=== PATIENT | female | born 1980 | race Caucasian/White ===

== ENCOUNTER 2020-11-09 17:52 | Outpatient (CLI) | payer SELFPAY | END 2020-11-09 17:53 | disposition EMS.NT | LOC: EMS 17:52 | PROVIDERS: ATTEND Surgery | DX: R00.0 Tachycardia, unspecified (principal) ==

== ENCOUNTER 2020-12-30 17:32 | Outpatient (CLI) | payer SELFPAY | END 2020-12-30 17:33 | disposition left against medical advice (07) | LOC: EMS 17:32 | DX: R07.9 Chest pain, unspecified (principal); R06.02 Shortness of breath ==

== ENCOUNTER 2020-12-30 22:20 | Emergency (ER) | payer SELFPAY ==
--- NOTE | 2020-12-30 22:30 | ED Physician Documentation ---
History of Present Illness - Stated complaint Stated Complaint: INCREASED HEART RATE - Chief complaint Chief Complaint: Cardiac - History obtained from History obtained from: Patient - History of Present Illness Timing: Today, How many hours ago (few hours ago) Pain level max: 0 Pain level now: 0 Improved by: nothing Worsened by: no exacerbating factors - Additonal information Additional information: c/o sudden onset rapid [place] says another [place] checked her pulse and said it was 150 bpm. she has had similar episodes before but no diagnosis (only has had holter monitor once). she drove home, took dose of steroids as a stress dose due to addrenal insufficiency, then came to ED. she has lightheadedness and dizziness but rapid palpitations have resolved. Review of Systems Constitutional: reports: Reviewed and negative Cardiac: reports: Palpitations. denies: Chest pain / pressure, Pedal edema, Calf pain Respiratory: reports: Reviewed and negative GI: reports: Reviewed and negative : denies: Now EGA Musculoskeletal: reports: Reviewed and negative PD PAST MEDICAL HISTORY - Past Medical History Past Medical History: Yes Other Past Medical History: addrenal insufficiency - Past Surgical History Past Surgical History: No - Present Medications Home Medications: Ambulatory Orders Medication Instructions Recorded Confirmed Hydrocortisone [Cortef] PO 12/30/20 Metoprolol Succinate [Toprol Xl] 25 mg PO DAILY 12/30/20 12/30/20 - Allergies Allergies/Adverse Reactions: Allergies Allergy/AdvReac Type Severity Reaction Status Date / Time No Known Drug Allergies Allergy Verified 12/30/20 22:41 - Living Situation Living Arrangement: reports: At home - Social History Does the pt smoke?: No PD ED PE NORMAL - Vitals Vital signs reviewed: Yes - General General: Alert and oriented X 3, No acute distress, Well developed/nourished - Neck Neck: Supple, no meningeal sign - Cardiac Cardiac: RRR, No murmur, No gallop, No rub - Respiratory Respiratory: No respiratory distress, Clear bilaterally - Abdomen Abdomen: Soft, Non tender - Derm Derm: Normal color, Warm and dry - Extremities Extremities: No edema Results - Vitals Vitals: Oxygen O2 Source Room air - EKG (time done) No standard instances Rate: Rate (enter#) (71) Rhythm: NSR [place]: Normal Intervals: Normal SD QRS: Normal Ischemia: Normal ST segments - Labs Labs: Laboratory Tests 12/30/20 12/30/20 12/30/20 22:58 22:58 22:58 WBC 7.1 RBC 4.58 Hgb 14.2 Hct 41.5 MCV 90.6 MCH 31.0 MCHC 34.2 RDW 11.4 L Plt Count 258 MPV 10.1 Neut # (Auto) 5.0 Lymph # (Auto) 1.7 [place] # (Auto) 0.4 Eos # (Auto) 0.0 Baso # (Auto) 0.0 Absolute Nucleated RBC 0.00 Nucleated RBC % 0.0 Sodium 139 Potassium 3.8 Chloride 104 Carbon Dioxide 24 Anion Gap 11.0 BUN 9 Creatinine 0.6 Estimated GFR (MDRD) 111 Glucose 136 H Calcium 9.4 Magnesium 2.1 Total Bilirubin 0.2 AST 18 ALT 18 Alkaline Phosphatase 38 L Total Protein 7.1 Albumin 4.1 Globulin 3.0 Albumin/Globulin Ratio 1.4 Lipase 29 TSH 1.78 PD MEDICAL DECISION MAKING - ED course Complexity details: reviewed results, re-evaluated patient, considered differential, d/w patient ED course: no further episodes of palpitations during ED stay and no ectopy or dysrhythmias on monitor. a few soft bp reads and thus given 10 mg po decadron as stress dose steroid (IV was not established) prior to discharge Departure - Departure Disposition: 01 Home, Self Care Clinical Impression: Palpitations Condition: Good Instructions: ED Palpitations Comments: Follow up with your primary care provider within 1 week Discharge Date/Time: 12/31/20 00:05
[2020-12-30 23:04] LABS: BASOPHILS % (AUTO) 0.3 %; EOSINOPHILS % (AUTO) 0.4 %; HCT - HEMATOCRIT 41.5 % (37.0-47.0); HGB - HEMOGLOBIN 14.2 g/dL (12.0-16.0); LYMPHOCYTES # (AUTO) 1.7 10^3/uL (1.5-3.5); LYMPHOCYTES % (AUTO) 23.3 %; MEAN CORPUSCULAR HGB CONC 34.2 g/dL (32.0-36.0); MEAN CORPUSCULAR VOLUME 90.6 fL (81.0-99.0); MEAN PLATELET VOLUME 10.1 fL (7.9-10.8); MONOCYTES # (AUTO) 0.4 10^3/uL (0.0-1.0); MONOCYTES % (AUTO) 4.9 %; NEUTROPHILS % (AUTO) 70.8 %; PLT - PLATELET COUNT 258 10^3/uL (130-450); RED BLOOD COUNT 4.58 10^6/uL (4.20-5.40); RED CELL DISTRIBUTION WIDTH 11.4 % (12.0-15.0); WHITE BLOOD COUNT 7.1 x10^3/uL (4.8-10.8)
[2020-12-30 23:18] LABS: ALBUMIN 4.1 g/dL (3.2-5.5); ALBUMIN/GLOBULIN RATIO 1.4 (1.0-2.2); BILIRUBIN,TOTAL 0.2 mg/dL (0.2-1.0); CALCIUM 9.4 mg/dL (8.5-10.3); CREATININE 0.6 mg/dL (0.4-1.0); MAGNESIUM 2.1 mg/dL (1.7-2.8); POTASSIUM 3.8 mmol/L (3.5-5.0); TOTAL PROTEIN 7.1 g/dL (6.7-8.2)
[2020-12-30] MEDS ORDERED: DEXAMETHASONE 10 MG/ML VIAL PO STA (23:48)
[2020-12-30] MEDS ORDERED: CHERRY SYRUP 10 ML UDC PO ONE (23:48)
[2020-12-31 00:04] VITALS: BP 121/80
== END 2020-12-31 00:05 | disposition home or self-care (01) ==
LOC: ED 22:20
DX: R00.2 Palpitations (principal); E27.40 Unspecified adrenocortical insufficiency
CPT/HCPCS: 36415; 80053; 83690; 83735; 84443; 85025; 93005; 99284

== ENCOUNTER 2020-12-31 22:50 | Outpatient (CLI) | payer SELFPAY | END 2020-12-31 22:51 | disposition EMS.NT | LOC: EMS 22:50 | DX: R00.0 Tachycardia, unspecified (principal); R42 Dizziness and giddiness; R07.9 Chest pain, unspecified ==